=== PATIENT | male | born 1960 | race African-American/Black ===

== ENCOUNTER 2018-06-06 08:33 | Emergency (ER) | payer SELFPAY ==
[~2018-06-06] VITALS: Ht 175.3 cm; Wt 86.2 kg
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
[2018-06-06] MEDS ORDERED: ACETAMINOPHEN500 M3 ORAL (09:16)
[2018-06-06] MEDS ORDERED: Acetaminophen 500mg (ES) tab ORAL ONE ×2 (09:22→09:30)
[2018-06-06 09:25] VITALS: BP 145/89
--- NOTE | 2018-06-06 11:09 | Diagnostic Imaging Report ---
Indication: Pain Technique: XRAY Shoulder Compl L Comparison: None Findings: Bone mineralization within normal limits. There is no acute fracture. Glenohumeral and acromioclavicular joints are maintained although there is some mild degenerative changes. Imaged portions of the left lung are clear. No radiopaque foreign body. Impression: No evidence of acute fracture or dislocation.
== END 2018-06-06 09:25 | disposition home or self-care (01) ==
LOC: EDBD 08:33 → EMR 08:50
DX: M25.512 Pain in left shoulder (principal); J45.909 Unspecified asthma, uncomplicated
CPT/HCPCS: 99283

== ENCOUNTER 2020-05-13 16:59 | Emergency (ER) | payer MEDICAID ==
[~2020-05-13] VITALS: Ht 175.3 cm; Wt 90.7 kg
[~2020-05-13 16:59] MED LIST: ACETAMINOPHEN500 M3 ORAL
[2020-05-13] MEDS ORDERED: Omnipaque-300 100ml vial INJ PRN (17:15)
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
--- NOTE | 2020-05-13 18:03 | Diagnostic Imaging Report ---
EXAM: CT Head Without Intravenous Contrast CLINICAL HISTORY: PAIN TECHNIQUE: Axial computed tomography images of the head/brain without intravenous contrast. CTDI is 53.4 mGy and DLP is 965.4 mGy-cm. One or more of the following dose reduction techniques were used: automated exposure control, adjustment of the mA and/or kV according to patient size, use of iterative reconstruction technique. COMPARISON: 03/05/2010. FINDINGS: Brain: No acute intracranial hemorrhage or cortical ischemia. Chronic small vessel ischemic changes. Ventricles: Unremarkable. Bones/joints: Unremarkable. No acute fracture. Soft tissues: Unremarkable. Sinuses: Unremarkable as visualized. Mastoid air cells: Unremarkable as visualized. IMPRESSION: No acute intracranial hemorrhage or skull fracture.
[2020-05-13 18:07] LABS: BASOPHILS % (AUTO) 1.5 % (0.0-2.0); EOSINOPHILS % (AUTO) 0.3 % (0.0-3.0); HEMATOCRIT 43.9 % (42.0-52.0); HEMOGLOBIN 14.6 G/DL (14.2-18.0); LYMPHOCYTES % (AUTO) 11.5 % (20.0-45.0); MEAN CORPUSCULAR VOLUME 92 FL (80-99); MONOCYTES % (AUTO) 3.1 % (1.0-10.0); NEUTROPHILS % (AUTO) 83.7 % (45.0-75.0); PLATELET COUNT 219 K/UL (150-450); RED BLOOD COUNT 4.75 M/UL (4.70-6.10); RED CELL DISTRIBUTION WIDTH 13.1 % (11.6-14.8); WHITE BLOOD COUNT 8.6 K/UL (4.8-10.8)
[2020-05-13 18:15] LABS: ANION GAP 9 mmol/L (5-15); BLOOD UREA NITROGEN 9 mg/dL (7-18); CALCIUM 9.1 MG/DL (8.5-10.1); CARBON DIOXIDE 30 MMOL/L (21-32); CHLORIDE 103 MMOL/L (98-107); CREATININE 1.4 MG/DL (0.55-1.30); POTASSIUM 3.9 MMOL/L (3.5-5.1); SODIUM 142 MMOL/L (136-145)
[2020-05-13 18:20] VITALS: BP 145/80
[2020-05-13 18:25] LABS: ALANINE AMINOTRANSFERASE 21 U/L (12-78); ALBUMIN 4.1 G/DL (3.4-5.0); ALBUMIN/GLOBULIN RATIO 1.2 (1.0-2.7); ALKALINE PHOSPHATASE 100 U/L (46-116); ASPARTATE AMINO TRANSFERASE 25 U/L (15-37)
--- NOTE | 2020-05-13 19:10 | NUR ---
HAND-OFF: Report given to elise razo.
--- NOTE | 2020-05-13 19:15 | NUR ---
ED Nurse Note: Report received from ELSIE Jesus. He appears to be sleeping at this time. No acute distress. Safety measures met. Breathing is normal.
--- NOTE | 2020-05-13 19:22 | Diagnostic Imaging Report ---
EXAM: CT Abdomen and Pelvis With Intravenous Contrast CLINICAL HISTORY: ABD PAIN TECHNIQUE: Axial computed tomography images of the abdomen and pelvis with intravenous contrast. CTDI is 8.3 mGy and DLP is 466.7 mGy-cm. One or more of the following dose reduction techniques were used: automated exposure control, adjustment of the mA and/or kV according to patient size, use of iterative reconstruction technique. COMPARISON: No relevant prior studies available. FINDINGS: Lung bases: Unremarkable. Mediastinum: Small hiatal hernia. ABDOMEN: Liver: Unremarkable. Gallbladder and bile ducts: Unremarkable. No calcified stones. Pancreas: Unremarkable. Spleen: Unremarkable. Adrenals: Unremarkable. Kidneys and ureters: Unremarkable. No hydronephrosis. Stomach and bowel: Mild diffuse colonic thickening which may be underdistention versus colitis. No bowel obstruction or diverticulitis. PELVIS: Appendix: No findings to suggest acute appendicitis. Bladder: Distended bladder. Mildly thickened bladder which may be chronic versus cystitis. Reproductive: Unremarkable as visualized. ABDOMEN and PELVIS: Intraperitoneal space: No free air. Bones/joints: No acute fracture. Soft tissues: Unremarkable. Vasculature: Unremarkable. Lymph nodes: Unremarkable. IMPRESSION: 1. Mild diffuse colonic thickening which may be underdistention versus colitis. No bowel obstruction or diverticulitis. 2. Distended bladder. Mildly thickened bladder which may be chronic versus cystitis.
[2020-05-13] MEDS: DiphenhydrAMINE 50mg/ml Inj IVP ONE (20:04)
[2020-05-13] MEDS: Metoclopramide 10mg/2ml Inj IVP ONE (20:04)
[2020-05-13] MEDS: Ketorolac 30mg Inj IV ONE (20:05)
--- NOTE | 2020-05-13 21:00 | NUR ---
ED Nurse Note: ERMD aware that patient has not provided urine sample.
[2020-05-13] MEDS ORDERED: ACETAMINOPHEN500 M3 ORAL (21:17)
[2020-05-13] MEDS ORDERED: ONDANSETRON ODT4 MG BC (21:17)
[2020-05-13 21:50] VITALS: BP 130/85
--- NOTE | 2020-05-13 21:50 | NUR ---
ER DISCHARGE NOTE: Patient is cleared to be discharged per ERMD, pt is aox4, on room air, with stable vital signs. pt was given dc and prescription instructions, pt was able to verbalize understanding, pt id band and iv site removed without complications. pt is able to ambulate with steady gait. pt took all belongings.
== END 2020-05-13 21:50 | disposition home or self-care (01) ==
LOC: EDBD 16:59 → EMR 17:15
DX: G43.909 Migraine, unspecified, not intractable, without status migrainosus (principal); I51.9 Heart disease, unspecified; J45.909 Unspecified asthma, uncomplicated
CPT/HCPCS: 36415; 70450; 74177; 80053; 83690; 84484; 85025; 93005; 96361; 96374; 96375; J1200; J1885; J2405; J2765; J7030; Q9965; S0028; Z7502; 99284